=== PATIENT | female | born 1970 | race Caucasian/White ===

== ENCOUNTER → 2017-11-25 | Outpatient (CLI) | payer BC ==
[2017-11-25 13:52] LABS: BASO # 0.1 10^3/uL (0.0-0.2); BASO % 0.6 % (0.0-1.0); EOS # 0.2 10^3/uL (0.0-0.50); EOS % 2.3 % (0.0-3.0); HEMATOCRIT 44.7 % (36.0-47.0); HEMOGLOBIN 14.6 g/dl (12.0-15.5); IMMATURE GRANULOCYTE % 0.3 % (0-3.0); LYMPH # 2.8 10^3/uL (1.5-4.5); LYMPH % 27.9 % (24.0-44.0); MEAN CORPUSCULAR HEMOGLOBIN 29.2 pg (27.0-33.0); MEAN CORPUSCULAR HGB CONC 32.7 g/dl (32.0-36.5); MEAN CORPUSCULAR VOLUME 89.4 fl (80.0-96.0); MONO # 0.6 10^3/uL (0.0-0.8); MONO % 6.1 % (0.0-5.0); NEUTROPHILS # 6.3 10^3/uL (1.8-7.7); NEUTROPHILS % 62.8 % (36.0-66.0); PLATELET COUNT, AUTOMATED 449 10^3/uL (150-450); RED CELL DISTRIBUTION WIDTH 14.1 % (11.5-14.5); WHITE BLOOD COUNT 10.1 10^3/uL (4.0-10.0)
[2017-11-25 14:04] LABS: D-DIMER QUANT 310.6 ng/ml (<500)
[2017-11-25 14:16] LABS: ERYTHROCYTE SEDIMENTATION RATE 14 mm/hr (0-20)
[2017-11-25 14:26] LABS: ALBUMIN 3.8 GM/DL (3.2-5.2); ALKALINE PHOSPHATASE 135 U/L (45-117); ALT/SGPT 23 U/L (12-78); ANION GAP 8 MEQ/L (8-16); AST/SGOT 13 U/L (7-37); BILIRUBIN,TOTAL 0.4 MG/DL (0.2-1.0); BLOOD UREA NITROGEN 14 MG/DL (7-18); CALCIUM LEVEL 8.8 MG/DL (8.5-10.1); CARBON DIOXIDE LEVEL 30 MEQ/L (21-32); CHLORIDE LEVEL 103 MEQ/L (98-107); CPK CREATINE PHOSPHOKINASE 66 U/L (26-192); CREATININE FOR GFR 0.92 MG/DL (0.55-1.30); FREE T4 0.77 NG/DL (0.76-1.46); GLOMERULAR FILTRATION RATE > 60.0 (>58); GLUCOSE, FASTING 79 MG/DL (70-100); MB/CK RELATIVE INDEX 2.58 (< OR =4); POTASSIUM SERUM 4.3 MEQ/L (3.5-5.1); SODIUM LEVEL 141 MEQ/L (136-145); TOTAL PROTEIN 7.6 GM/DL (6.4-8.2); TROPONIN I < 0.02 NG/ML (< 0.10)
== END ==
LOC: M WUC 12:43
DX: R07.1 Chest pain on breathing (principal)
CPT/HCPCS: 82550

== ENCOUNTER 2019-03-03 10:01 | Day surgery (SDC) | payer OTHER ==
[~2019-03-03] VITALS: Ht 167.6 cm; Wt 116.0 kg
[~2019-03-03 10:01] MED LIST: DULO1CAP6 PO; LISI-538 PO; LR 1,000 ML IV ONE; SUCR1TA PO; ceFAZolin SOD 2 GM in IV 1 EA IV ONE
[2019-03-03] MEDS ORDERED: ONDANSETRON 4MG/2ML VIAL (J2405) As Ordered ONE (10:15)
[2019-03-03] MEDS ORDERED: propofoL 500 MG/50 ML VIAL As Ordered ONE (10:15)
[2019-03-03] MEDS ORDERED: dexameTHASONE 4 MG/ML 1ML VIAL (J1100) As Ordered ONE ×2 (10:15→10:57)
[2019-03-03] MEDS ORDERED: fentaNYL 100 MCG/2 ML INJECTION (J3010) As Ordered ONE (10:16)
[2019-03-03] MEDS ORDERED: MIDAZOLAM INJ 2 MG/2 ML VIAL (J2250) As Ordered ONE (10:16)
[2019-03-03] MEDS ORDERED: BUPIVACAINE HCL 0.5% 10 ML VIAL As Ordered ONE (10:57)
[2019-03-03] MEDS: LIDOCAINE 1% MDV 20ML VIAL As Ordered ONE (11:19)
[2019-03-03] MEDS ORDERED: HYDR-3713 PO (12:00)
[2019-03-03 12:30] VITALS: BP 116/60
[2019-03-03] MEDS ORDERED: oxyCODONE 5MG TAB PO PRN (13:00)
[2019-03-03] MEDS ORDERED: ONDANSETRON 4MG/2ML VIAL (J2405) IV PRN (13:00)
[2019-03-03] MEDS ORDERED: LR 1,000 ML IV SCH (13:00)
--- NOTE | 2019-03-03 18:55 | RO ---
DATE OF PROCEDURE: 03/03/2019 PREOPERATIVE DIAGNOSIS: Right foot hallux rigidus. POSTOPERATIVE DIAGNOSIS: Right foot hallux rigidus. PROCEDURE: Right foot metatarsal phalangeal joint caliectomy. SURGEON: Dr. Hero No LIVE AMMUNITION INSPECTOR: None. ANESTHESIA: Monitored anesthesia care. Preoperative injection of 15 mL of 1 to 1 mixture of 1% Lidocaine and 1/2% Marcaine plain. ESTIMATED BLOOD LOSS: Minimal. MATERIALS: 3 and 4-0 Vicryl, 4-0 Nylon. INJECTABLES: 1 mL Decadron, 4 mg/mL COMPLICATIONS: None. CONDITION: Stable. Terri Ambriz is a 48-year-old female who presents to [facility] with complaints of pain to her right first toe. She presents today for surgical correction. The patient site and side were identified and marked in the preoperative area. Consent was reviewed and obtained, all risks complications and alternatives of the procedure were explained to the patient in detail and all questions were answered. PROCEDURE: The patient was brought to the operating room and placed on the operating room table in the supine position. Monitored anesthesia care was delivered by the anesthesia team. Preoperative injection of 15 mL of a 1 to 1 mixture of 1% Lidocaine plain and 1/2% Marcaine plain were injected into the right foot. The right foot was prepped and draped in the usual sterile fashion and a tourniquet was applied to the right ankle and inflated to 250 mmHg. A dorsal incision was drawn and carried through with a #15 blade. The first metatarsal dissection was carried out at the first metatarsal phalangeal capsule a T capsulotomy was performed exposing the metatarsal head. There is dorsal spurring noted on the first metatarsal head and base of the proximal phalanx. This was removed with a sagittal saw, rongeur and then smoothed rasped. The site was irrigated with normal saline. Capsular repair was performed with 3-0 Vicryl. Subcutanea was closed with 4-0 Vicryl and skin was closed with 4-0 Nylon. 1 mL of Decadron and 4 mg per mL was injected Sterile dressings were applied. Patient was brought to postanesthesia care unit with vitals signs stable and neurovascular status intact. She will be partial weightbearing and she will followup in the office in 2 days. SHILPA
== END 2019-03-03 13:00 | disposition home or self-care (01) ==
LOC: M SDC 10:01
PROVIDERS: ATTEND Podiatrist Foot & Ankle Surgery
DX: M20.21 Hallux rigidus, right foot (principal); M20.5X1 Other deformities of toe(s) (acquired), right foot; M19.071 Primary osteoarthritis, right ankle and foot; I10 Essential (primary) hypertension; K21.9 Gastro-esophageal reflux disease without esophagitis; F32.9 Major depressive disorder, single episode, unspecified; M50.20 Other cervical disc displacement, unspecified cervical region; G47.30 Sleep apnea, unspecified; Z79.899 Other long term (current) drug therapy; Z88.5 Allergy status to narcotic agent; Z91.018 Allergy to other foods; Z87.891 Personal history of nicotine dependence
CPT/HCPCS: 28289; 81025; 88300; 97116; J0690; J1100; J2250; J2405; J3010

== ENCOUNTER → 2019-08-25 | Outpatient (CLI) | payer OTHER ==
[~2019-08-25] MED LIST changes: +HYDR-3713 PO; -LR 1,000 ML IV ONE; -ceFAZolin SOD 2 GM in IV 1 EA IV ONE
--- NOTE | 2019-08-25 16:33 | REP ---
REASON: History of chronic sinusitis. There is less aeration of the right maxillary sinus compared to the left, possibly secondary to chronic mucoperiosteal thickening. There are no air-fluid levels. The bony architecture surrounding the paranasal sinuses is within normal limits. IMPRESSION: Chronic right maxillary sinus changes are possible, as described above. CT examination of the maxillofacial region with concentration on the paranasal sinuses would better image this potential finding. Electronically Signed by Chintan Peralta DO 08/25/2019 04:49 P
== END ==
LOC: M RAD 13:01
PROVIDERS: ATTEND Nurse Practitioner Adult Health
DX: G44.1 Vascular headache, not elsewhere classified (principal); J32.9 Chronic sinusitis, unspecified

== ENCOUNTER → 2021-11-05 | Outpatient (CLI) | payer OTHER ==
[~2021-11-05] MED LIST changes: -LISI-538 PO; +LISI20TA33 PO
== END ==
LOC: M WHC 09:05
PROVIDERS: ATTEND Nurse Practitioner Family
DX: Z12.31 Encounter for screening mammogram for malignant neoplasm of breast (principal); R92.8 Other abnormal and inconclusive findings on diagnostic imaging of breast

== ENCOUNTER → 2021-12-05 | Outpatient (CLI) | payer OTHER | LOC: M WHC 08:02 | PROVIDERS: ATTEND Nurse Practitioner Family | DX: N60.02 Solitary cyst of left breast (principal) ==

== ENCOUNTER → 2022-09-16 | Outpatient (CLI) | payer OTHER | LOC: M PLALAB 08:50 | PROVIDERS: ATTEND Nurse Practitioner Family | DX: Z12.4 Encounter for screening for malignant neoplasm of cervix (principal) ==

== ENCOUNTER → 2023-06-05 | Outpatient (CLI) | payer OTHER | LOC: M WHC 09:38 | PROVIDERS: ATTEND Physician Assistant | DX: R92.8 Other abnormal and inconclusive findings on diagnostic imaging of breast (principal); N63.21 Unspecified lump in the left breast, upper outer quadrant | CPT/HCPCS: 77066; G0279 ==